=== PATIENT | female | born 1995 | race Caucasian/White ===

== ENCOUNTER 2018-02-07 21:43 | Emergency (ER) | payer OTHER ==
[~2018-02-07] VITALS: Ht 162.6 cm; Wt 86.6 kg
[2018-02-07 21:45] VITALS: TEMP 37.3; Ht 162.6 cm; Wt 86.6 kg
[2018-02-07] MEDS ORDERED: BCPILLS PO (22:25)
[2018-02-07] MEDS ORDERED: SERT50TA PO (22:25)
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
[2018-02-07] MEDS ORDERED: ACETAMINOPHEN 325 MG TAB PO STA (22:37)
[2018-02-07 23:20] VITALS: BP 132/85; PULSE 83; O2SAT 100
== END 2018-02-07 23:20 | disposition home or self-care (01) ==
LOC: C.EDB 21:43
DX: S09.90XA Unspecified injury of head, initial encounter (principal); V43.92XA Unspecified car occupant injured in collision with other type car in traffic accident, initial encounter; Y92.488 Other paved roadways as the place of occurrence of the external cause; Z79.3 Long term (current) use of hormonal contraceptives